=== PATIENT | female | born 1995 | race Caucasian/White ===

== ENCOUNTER 2016-08-27 08:24 | Inpatient (IN) | payer MEDICAID ==
[~2016-08-27 08:24] MED LIST: ATIVAN-DPS0.5 MG PO; AUGMENTIN 500500 MG PO; AUGMENTIN875 MG PO; CALCITRIOL0.5 MCG PO; CELLCEPT DPS250 MG PO; CELLCEPT500 MG PO; CIPRO DPS500 MG PO; DELTASONE DPS1 MG PO; DELTASONE DPS10 MG PO; DEPO-PROVE150 MG/11 PO; DILAUDID2 MG PO; FEOSOL-DPS325 MG PO; IRON325 M1 PO; MACRODANTIN DPS50 MG PO; NAPROSYN250 MG PO; OMNICEF DPS300 MG PO; PREDNISONE1 MG PO; PROGRAF1 MG PO; RANITIDINE HCL75 MG PO; ROCALTROL DP0.25 MCG PO; ROCALTROL DPS0.5 MCG PO; SOD BICARB TAB650 MG PO; SODIUM BICARBO650 MG PO; TAB A VITE1 EAC1 PO; TACROLIMUS1 MG PO; TYLENOL #3 DPS1 TAB PO; TYLENOL EXTRA500 M1 PO; ULTRAM DPS50 MG PO; ZANTAC DPS150 MG PO; ZOFRAN8 MG PO; [UNRECOGNIZED DRUG - OTHER] IV; [UNRECOGNIZED DRUG - OTHER] PO; [UNRECOGNIZED DRUG - OTHER] PO
[2016-09-05] MEDS ORDERED: CIPRO DPS500 MG PO (14:29)
[2016-09-05] MEDS ORDERED: GLYCERIN MS (14:30)
[2016-12-08] MEDS ORDERED: ENVARSUS XR4 MG PO (15:51)
[2016-12-08] MEDS ORDERED: DELTASONE DPS10 MG PO (15:52)
[2016-12-08] MEDS ORDERED: AMBIEN DPS5 MG PO (15:52)
[2016-12-08] MEDS ORDERED: RANITIDINE HCL150 M1 PO (15:52)
[2016-12-08] MEDS ORDERED: OMNICEF DPS300 MG PO (15:53)
== END 2016-09-04 15:25 | disposition home or self-care (01) | DRG 674 ==
DX: N17.9 Acute kidney failure, unspecified (principal); T86.11 Kidney transplant rejection; E87.2 Acidosis; N31.9 Neuromuscular dysfunction of bladder, unspecified; Q67.5 Congenital deformity of spine; N12 Tubulo-interstitial nephritis, not specified as acute or chronic; N18.6 End stage renal disease; B95.61 Methicillin susceptible Staphylococcus aureus infection as the cause of diseases classified elsewhere; D63.1 Anemia in chronic kidney disease; N25.0 Renal osteodystrophy; Q64.9 Congenital malformation of urinary system, unspecified; J45.909 Unspecified asthma, uncomplicated; Z79.52 Long term (current) use of systemic steroids

== ENCOUNTER 2016-10-02 08:20 | Day surgery (SDC) | payer MEDICAID ==
[~2016-10-02] VITALS: Ht 137.2 cm; Wt 39.0 kg
[~2016-10-02 08:20] MED LIST changes: +GLYCERIN MS
[2016-12-08] MEDS ORDERED: ENVARSUS XR4 MG PO (15:51)
[2016-12-08] MEDS ORDERED: RANITIDINE HCL150 M1 PO (15:52)
[2016-12-08] MEDS ORDERED: AMBIEN DPS5 MG PO (15:52)
[2016-12-08] MEDS ORDERED: DELTASONE DPS10 MG PO (15:52)
[2016-12-08] MEDS ORDERED: OMNICEF DPS300 MG PO (15:53)
== END 2016-10-02 15:16 | disposition home or self-care (01) ==
LOC: RAD.S 08:20 → EDSTATUS 10:30 → RAD.S 15:16
DX: Z45.2 Encounter for adjustment and management of vascular access device (principal); N18.6 End stage renal disease; Z79.52 Long term (current) use of systemic steroids; Z79.899 Other long term (current) drug therapy; Z91.040 Latex allergy status